=== PATIENT | female | born 1995 | race Caucasian/White ===

== ENCOUNTER 2018-11-06 11:52 | Emergency (ER) | payer BC, MEDICAID ==
[2016-11-28 07:00] VITALS: Wt 74.8 kg
[~2018-11-06 11:52] MED LIST: ACET-1718 PO; Benzocaine 60 ML TP; DOCU-416 PO; DOCU240C67 PO; IBUP800T37 PO; Lanolin TP; PREN1TAB50 PO; TUCKS TP
--- NOTE | 2018-11-06 12:02 | ER Report ---
History and Physical Time Seen By MD: 12:02 HPI/ROS CHIEF COMPLAINT: Fever for 8 days HISTORY OF PRESENT ILLNESS: 23 year old female presents to ED with fever for 8 days. Reports highest temp she took was 103.8*F axillary. Reports fever started last Monday with associated symptoms of nausea, headache, neck stiffness, diarrhea on and off, chest tightness, cough, right flank pain, body aches, chills, and night sweats. Reports to taking tylenol and ibuprofen around the clock for fever and comfort. Last dose of tylenol was at 1100 this morning. Patient was seen at urgent care last where they performed a flu swab that was negative. She was given tamiflu at that time. Reports to going to urgent care again yesterday where they collected a UA and chest x-ray. Reports chest x-ray was clear and UA showed signs of UTI. Was prescribed augmentin for the UTI. REVIEW OF SYSTEMS: Constitutional: Reports fever, fatigue, chills, night sweats, loss of appetite. Reports she has not been able to eat much of anything the past week or take in many fluids. HEENT: Reports headache, neck stiffness, nasal congestion. Denies sore throat, ear pain, vision changes. Respiratory: Reports non-productive cough, difficulty taking a deep breath, and chest tightness. Cardiovascular: No chest pain. Reports heart palpitations and a racing heart. Gastrointestinal: No vomiting, no abdominal pain. Reports diarrhea on and off. Reports nausea. Genitourinary: Denies burning and frequency of urination. Reports foul smelling and darker urine since June. Neuro: Reports dizziness and "feeling loopy" Musculoskeletal: Reports right flank pain. Allergies: Coded Allergies: No Known Drug Allergies (Unverified , 11/28/16) Home Meds Active Scripts Docusate Sodium (COLACE) 100 Mg Capsule, 200 MG PO DAILY, #60 CAPSULE 2 Refills Prov:TAYLER MORAES MD 11/29/16 Ibuprofen (IBUPROFEN) 800 Mg Tablet, 1 TAB PO Q8H PRN for pain, #40 TAB 0 Refills TAKE WITH FOOD EVERY 8 HOURS Prov:TAYLER MORAES MD 11/29/16 Acetaminophen With Codeine # 3 (ACETAMINOPHEN-COD #3 TABLET) 1 Each Tablet, 1-2 EACH PO Q4H PRN for pain, #40 TAB 0 Refills Take 1-2 tablets as needed for pain no closer than every 4 hours. Prov:TAYLER MORAES MD 11/29/16 Reported Medications Vit #76/Iron,Carb/FA (Pnv 29-1 Tablet) 1 Each Tablet, PO DAILY for 12/15/14 Past Medical/Surgical History Patient with significant past medical history of broken nose. No significant past surgical history. Reviewed Nurses Notes: Yes Hx Smoking: No Smoking Status: Never Smoker Exposure to Second Hand Smoke?: Yes Constitutional Vital Sign - Last 24 Hours 11/06/18 11/06/18 11/06/18 11/06/18 11:56 12:00 12:30 12:50 Temp 102.5 Pulse 106 106 104 99 Resp 18 18 B/P (MAP) 118/70 118/70 (86) 131/87 (102) Pulse Ox 91 92 92 O2 Delivery Room Air 11/06/18 11/06/18 11/06/18 11/06/18 12:50 12:56 13:00 13:30 Pulse 101 113 103 Resp 18 B/P (MAP) 120/78 (92) Pulse Ox 91 92 92 O2 Delivery Room Air 11/06/18 11/06/18 11/06/18 11/06/18 13:35 14:05 14:30 14:35 Pulse 100 97 95 B/P (MAP) 118/73 (88) Pulse Ox 92 95 93 Physical Exam General Appearance: The patient is alert, has no immediate need for airway protection and no current signs of toxicity. Eyes: Pupils equal and round no injection. HENT: TMs pearly cottrell with no erythema, bulging, or retraction bilaterally. Posterior pharynx with no erythema or edema. No turbinate swelling bilaterally. Respiratory: Chest is non tender, lungs are clear to auscultation. Cardiac: regular rhythm, tachycardia Gastrointestinal: Abdomen is soft and non tender, no masses, bowel sounds n ormal. Right CVA tenderness with mild palpation Musculoskeletal: Neck: Neck is supple and non tender. Negative kernig and brudzinski's sign. Skin: No rashes or lesions. Lymph: No lymphadenopathy at anterior cervical, posterior cervical, pre- auricular, submandibular, and submental. DIFFERENTIAL DIAGNOSIS: After history and physical exam differential diagnosis was considered for pyelonephritis, influenza, acute cystitis, pneumonia, mononucleosis, meningitis. Medical Decision Making Data Points Result Diagram: 11/06/18 1236 11/06/18 1236 Laboratory Hematology Test 11/06/18 12:08 11/06/18 12:36 11/06/18 13:00 Human Chorionic Gonadotropin, Qual Negative (NEGATIVE) Influenza Virus Type A (PCR) Negative (NEGATIVE) Influenza Virus Type B (PCR) Negative (NEGATIVE) Red Blood Count 4.19 M/uL (4.17-5.56) Mean Corpuscular Volume 84.3 fL (80.0-96.0) Mean Corpuscular Hemoglobin 27.9 pg (26.0-33.0) Mean Corpuscular Hemoglobin Concent 33.1 g/dL (32.0-36.0) Red Cell Distribution Width 13.7 % (11.5-14.5) Mean Platelet Volume 8.9 fL (7.2-11.1) Neutrophils (%) (Auto) 78.9 % (39.4-72.5) Lymphocytes (%) (Auto) 13.2 % (17.6-49.6) Monocytes (%) (Auto) 6.8 % (4.1-12.4) Eosinophils (%) (Auto) 0.2 % (0.4-6.7) Basophils (%) (Auto) 0.9 % (0.3-1.4) Nucleated RBC Relative Count (auto) 0.0 /100WBC Neutrophils # (Auto) 11.2 K/uL (2.0-7.4) Lymphocytes # (Auto) 1.9 K/uL (1.3-3.6) Monocytes # (Auto) 1.0 K/uL (0.3-1.0) Eosinophils # (Auto) 0.0 K/uL (0.0-0.5) Basophils # (Auto) 0.1 K/uL (0.0-0.1) Nucleated RBC Absolute Count (auto) 0.00 K/uL Erythrocyte Sedimentation Rate 40 mm/HOUR (0-20) Sodium Level 137 mmol/L (137-145) Potassium Level 4.0 mmol/L (3.5-5.0) Chloride Level 100 mmol/L (98-107) Carbon Dioxide Level 27 mmol/L (22-31) Blood Urea Nitrogen 11 mg/dl (7-18) Creatinine 0.90 mg/dl (0.52-1.04) Glomerular Filtration Rate Calc > 60.0 Random Glucose 109 mg/dl (75-110) Lactate 1.0 mmol/L (0.7-2.1) Calcium Level 8.8 mg/dl (8.4-10.2) Total Bilirubin 0.6 mg/dl (0.2-1.3) Aspartate Amino Transf (AST/SGOT) 28 U/L (0-35) Alanine Aminotransferase (ALT/SGPT) 32 U/L (0-56) Alkaline Phosphatase 131 U/L (0-126) C-Reactive Protein 21.8 mg/dl (<1.0) Total Protein 7.9 g/dl (6.3-8.2) Albumin 4.0 g/dl (3.5-5.0) Monoscreen Negative (NEGATIVE) Urine Color Yellow Urine Clarity Slightly-cloudy Urine pH 7.0 pH (4.8-9.5) Urine Specific [place]ford 1.005 Urine Protein Negative mg/dL (NEGATIVE) Urine Glucose (UA) Negative mg/dL (NEGATIVE) Urine Ketones Negative mg/dL (NEGATIVE) Urine Blood Small (NEGATIVE) Urine Nitrite Negative (NEGATIVE) Urine Bilirubin Negative (NEGATIVE) Urine Urobilinogen Negative mg/dL (0.2-1.9) Urine Leukocyte Esterase Small (NEGATIVE) Urine RBC 1 /HPF (0-2/HPF) Urine WBC 9 /HPF (0-5/HPF) Urine Squamous Epithelial Cells Many /LPF (</=FEW) Urine Transitional Epithelial Cells Few /LPF (NONE-FEW) Urine Bacteria Few /HPF (NONE-FEW) Urine Mucus None /HPF (NONE-FEW) Chemistry Test 11/06/18 12:08 11/06/18 12:36 11/06/18 13:00 Human Chorionic Gonadotropin, Qual Negative (NEGATIVE) Influenza Virus Type A (PCR) Negative (NEGATIVE) Influenza Virus Type B (PCR) Negative (NEGATIVE) White Blood Count 14.2 k/uL (4.5-11.0) Red Blood Count 4.19 M/uL (4.17-5.56) Hemoglobin 11.7 g/dL (12.0-16.0) Hematocrit 35.3 % (34.0-47.0) Mean Corpuscular Volume 84.3 fL (80.0-96.0) Mean Corpuscular Hemoglobin 27.9 pg (26.0-33.0) Mean Corpuscular Hemoglobin Concent 33.1 g/dL (32.0-36.0) Red Cell Distribution Width 13.7 % (11.5-14.5) Platelet Count 327 K/uL (150-450) Mean Platelet Volume 8.9 fL (7.2-11.1) Neutrophils (%) (Auto) 78.9 % (39.4-72.5) Lymphocytes (%) (Auto) 13.2 % (17.6-49.6) Monocytes (%) (Auto) 6.8 % (4.1-12.4) Eosinophils (%) (Auto) 0.2 % (0.4-6.7) Basophils (%) (Auto) 0.9 % (0.3-1.4) Nucleated RBC Relative Count (auto) 0.0 /100WBC Neutrophils # (Auto) 11.2 K/uL (2.0-7.4) Lymphocytes # (Auto) 1.9 K/uL (1.3-3.6) Monocytes # (Auto) 1.0 K/uL (0.3-1.0) Eosinophils # (Auto) 0.0 K/uL (0.0-0.5) Basophils # (Auto) 0.1 K/uL (0.0-0.1) Nucleated RBC Absolute Count (auto) 0.00 K/uL Erythrocyte Sedimentation Rate 40 mm/HOUR (0-20) Glomerular Filtration Rate Calc > 60.0 Lactate 1.0 mmol/L (0.7-2.1) Calcium Level 8.8 mg/dl (8.4-10.2) Total Bilirubin 0.6 mg/dl (0.2-1.3) Aspartate Amino Transf (AST/SGOT) 28 U/L (0-35) Alanine Aminotransferase (ALT/SGPT) 32 U/L (0-56) Alkaline Phosphatase 131 U/L (0-126) C-Reactive Protein 21.8 mg/dl (<1.0) Total Protein 7.9 g/dl (6.3-8.2) Albumin 4.0 g/dl (3.5-5.0) Monoscreen Negative (NEGATIVE) Urine Color Yellow Urine Clarity Slightly-cloudy Urine pH 7.0 pH (4.8-9.5) Urine Specific Sanford 1.005 Urine Protein Negative mg/dL (NEGATIVE) Urine Glucose (UA) Negative mg/dL (NEGATIVE) Urine Ketones Negative mg/dL (NEGATIVE) Urine Blood Small (NEGATIVE) Urine Nitrite Negative (NEGATIVE) Urine Bilirubin Negative (NEGATIVE) Urine Urobilinogen Negative mg/dL (0.2-1.9) Urine Leukocyte Esterase Small (NEGATIVE) Urine RBC 1 /HPF (0-2/HPF) Urine WBC 9 /HPF (0-5/HPF) Urine Squamous Epithelial Cells Many /LPF (</=FEW) Urine Transitional Epithelial Cells Few /LPF (NONE-FEW) Urine Bacteria Few /HPF (NONE-FEW) Urine Mucus None /HPF (NONE-FEW) Urinalysis Test 11/06/18 13:00 Urine Color Yellow Urine Clarity Slightly-cloudy Urine pH 7.0 pH (4.8-9.5) Urine Specific Sanford 1.005 Urine Protein Negative mg/dL (NEGATIVE) Urine Glucose (UA) Negative mg/dL (NEGATIVE) Urine Ketones Negative mg/dL (NEGATIVE) Urine Blood Small (NEGATIVE) Urine Nitrite Negative (NEGATIVE) Urine Bilirubin Negative (NEGATIVE) Urine Urobilinogen Negative mg/dL (0.2-1.9) Urine Leukocyte Esterase Small (NEGATIVE) Urine RBC 1 /HPF (0-2/HPF) Urine WBC 9 /HPF (0-5/HPF) Urine Squamous Epithelial Cells Many /LPF (</=FEW) Urine Transitional Epithelial Cells Few /LPF (NONE-FEW) Urine Bacteria Few /HPF (NONE-FEW) Urine Mucus None /HPF (NONE-FEW) EKG/Imaging Imaging Chest x-ray: FINDINGS: Heart size within normal limits. Lungs are clear. Bones are unremarkable. There is no pneumothorax or pleural effusion. IMPRESSION: 1. No acute cardiopulmonary process. Abdomen/pelvis CT: Findings: Lower lung king: Dependent atelectasis involves the lung bases. Liver: No focal parenchymal abnormality of the liver. Biliary: Gallbladder appears unremarkable as well as the intra and extra hepatic biliary system. Pancreas: Normal appearance. Spleen: The spleen is at the upper limits of normal for size. Adrenal glands: Unremarkable. Kidneys / retroperitoneum: The right kidney appears somewhat malrotated with its long axis oriented from anterior to posterior. The right kidney appears enlarged and there is perinephric inflammatory stranding identified. The enhancement pattern of the right kidney is heterogeneous when compared to the left kidney. This is most pronounced involving the more anterior and midportion of the kidney. The renal pelvis appears mildly prominent as do the calyces with mild urothelial enhancement. Culmination of findings most consistent with pyelonephritis but clinical correlation is necessary. No ureteral stone or renal stone is seen. Left kidney appears unremarkable. Bowel / peritoneum / mesenteries: No evidence of colonic wall thickening or pericolonic inflammation. Appendix not clearly seen but there are no findings to suggest acute appendicitis. No small bowel dilatation. Lymph node assessment: There is a borderline enlarged aortocaval lymph node on i mage 55 which measures 10-11 mm in short axis. Pelvic structures: IUD is in place. There is a small amount of free pelvic fluid. Adnexa are unremarkable. Vessels: No significant atherosclerotic calcifications seen throughout a nonaneurysmal abdominal aorta and branches. Musculoskeletal / Body wall: No acute or aggressive osseous abnormality. IMPRESSION: 1. Abnormal appearance of the right kidney as described above with a CT appearance most consistent with pyelonephritis. Clinical correlation is necessary for this diagnosis. No evidence for abscess. There is mild associated pelvocaliectasis without obstructing stone. 2. Borderline splenomegaly. 3. Borderline enlarged aortocaval lymph node measuring 10-11 mm in short axis. This may be reactive. 4. Trace free pelvic fluid. ED Course/Re-evaluation ED Course Patient admitted to an exam room, history and physical obtained, and differential diagnoses considered. Patients presents with fever for 8 days. Patient reports associated symptoms of nausea, diarrhea on and off, headache, neck stiffness, right flank pain, chest tightness, chills, night sweats, difficulty taking a deep breath, nasal congestion, and cough. Reports highest temp at home was 103.8. Reports taking tylenol and ibuprofen around the clock to help with fever and body aches. Reports foul smelling and darker urine since June. Patient was seen at urgent care last where they performed a flu swab that was negative. She was given tamiflu at that time. Reports to going to urgent care again yesterday where they collected a UA and chest x-ray. Reports chest x-ray was clear and UA showed signs of UTI. Was prescribed augmentin for the UTI. Upon exam patient is diaphoretic, lungs are clear to auscultation, heart rate is tachycardic, right CVA tenderness with mild palpation, negative kernig and brudzinski's sign. No abdominal or pelvic tenderness upon palpation. Collected an influenza, CBC, CMP, lactate, UA with culture and sensitivity, HCG, chest x-ray, mono, blood cultures, ESR, CRP. IV started and 1000mL NS infused. Albuterol neb given; patient reports that this has not helped her chest tightness. Ibuprofen 600mg given for pain. WBC 14.2. Nuetrophils 78.9. ESR 40. CRP 21.8. Small amount of leukocyte esterase on UA. Flu and mono were negative. Chest x-ray with no acute cardiopulmonary processes. Abdomen/pelvis CT showed signs of abnormal appearance of the right kidney most consistent with pyelonephritis. Patient given one dose of rocephin 1 gram IV. Patient requested another liter of fluids which were given. Patient to continue Augmentin. Once we have the UA sensitivity back, we will let her know if she is to continue the Augmentin or if we will switch her antibiotic. Patient agrees to plan of care. Decision to Disposition Date: Nov 06, 2018 Decision to Disposition Time: 16:20 Depart Departure Latest Vital Signs Vital Signs Date Time Temp Pulse Resp B/P (MAP) Pulse Ox O2 Delivery O2 Flow Rate FiO2 11/06/18 14:35 95 93 11/06/18 14:30 118/73 (88) 11/06/18 12:56 18 11/06/18 12:50 Room Air 11/06/18 11:56 102.5 Impression: Primary Impression: Pyelonephritis Condition: Condition Unchanged Disposition: HOME OR SELF-CARE Patient Instructions: Urinary Tract Infection in Women (ED) Additional Instructions: Please continue Augmentin until prescription is gone. We will call you with the culture and sensitivity results when they come back. We will either tell you to continue the Augmentin or we will change antibiotics. Please drink plenty of fluids. Don't return to work until you are fever free for 24 hours. Please return to the ER if your fever does not break, if you start vomiting, if you have any difficulty breathing, or your flank pain worsens. PHU SHARP Nov 06, 2018 12:02
[2018-11-06] MEDS ORDERED: NS(*) 0.9% 1000 ML BAG 1,000 ML IV ONE ×2 (12:18→15:05)
[2018-11-06] MEDS ORDERED: ALBUTEROL/IPRATROPIUM 3 ML NEB NEB ONE (12:20)
[2018-11-06 12:49] LABS: PLATELET COUNT, AUTOMATED 327 K/uL (150-450)
--- NOTE | 2018-11-06 13:34 | RADIOLOGY IMAGING REPORT ---
FACILITY: [facility] [place] PATIENT NAME: Stephany Campos : 1995 MR: [id number] V: [id number] EXAM DATE: ORDERING PHYSICIAN: PHU SHARP TECHNOLOGIST: Location: [facility] Patient: Stephany Campos : 1995 Visit/Account:[id number] Date of Sevice: 11/06/2018 2 VIEWS CHEST INDICATION: Fever, eight days COMPARISON: X-ray examination chest November 05, 2018 FINDINGS: Heart size within normal limits. Lungs are clear. Bones are unremarkable. There is no pneumothorax or pleural effusion. IMPRESSION: 1. No acute cardiopulmonary process. Report Dictated By: Srinath Borrero MD at 11/06/2018 1:30 PM Report E-Signed By: Srinath Borrero MD at 11/06/2018 1:30 PM [id number]
[2018-11-06] MEDS ORDERED: IOPAMIDOL 76% 150 ML INFUS BTL 150 ML ONE (14:00)
[2018-11-06] MEDS ORDERED: IBUPROFEN 600 MG TAB PO ONE (14:25)
[2018-11-06 14:30] VITALS: BP 118/73
[2018-11-06] MEDS ORDERED: cefTRIAXone 1 GM VIAL IVP ONE (14:30)
--- NOTE | 2018-11-06 14:39 | RADIOLOGY IMAGING REPORT ---
FACILITY: [facility] PATIENT NAME: Stephany Campos : 1995 MR: [id number] V: [id number] EXAM DATE: ORDERING PHYSICIAN: PHU SHARP TECHNOLOGIST: Location: [facility] [place] Patient: Stephany Campos : 1995 Visit/Account:[id number] Date of Sevice: 11/06/2018 Computed tomograpy abdomen and pelvis with IV contrast Indication: Right flank pain. Fever. Comparison: None available. . Technique: Transaxial computed tomography images were obtained through the abdomen and pelvis follo wing the injection of nonionic iodinated intravenous contrast. Reformatted coronal and sagittal image s were also obtained. One of the following dose optimization techniques was utilized in the performance of this exam: Autom ated exposure control; adjustment of the mA and/or kV according to the patient's size; or use of an i terative reconstruction technique. Specific details can be referenced in the facility's radiology C T exam operational policy. Contrast: 75 ml of Isovue-370 IV contrast. Findings: Lower lung king: Dependent atelectasis involves the lung bases. Liver: No focal parenchymal abnormality of the liver. Biliary: Gallbladder appears unremarkable as well as the intra and extra hepatic biliary system. Pancreas: Normal appearance. Spleen: The spleen is at the upper limits of normal for size. Adrenal glands: Unremarkable. Kidneys / retroperitoneum: The right kidney appears somewhat malrotated with its long axis oriented f rom anterior to posterior. The right kidney appears enlarged and there is perinephric inflammatory st randing identified. The enhancement pattern of the right kidney is heterogeneous when compared to the left kidney. This is most pronounced involving the more anterior and midportion of the kidney. The r enal pelvis appears mildly prominent as do the calyces with mild urothelial enhancement. Culmination of findings most consistent with pyelonephritis but clinical correlation is necessary. No ureteral st one or renal stone is seen. Left kidney appears unremarkable. Bowel / peritoneum / mesenteries: No evidence of colonic wall thickening or pericolonic inflammation. Appendix not clearly seen but there are no findings to suggest acute appendicitis. No small bowel di latation. Lymph node assessment: There is a borderline enlarged aortocaval lymph node on image 55 which measure s 10-11 mm in short axis. Pelvic structures: IUD is in place. There is a small amount of free pelvic fluid. Adnexa are unrem arkable. Vessels: No significant atherosclerotic calcifications seen throughout a nonaneurysmal abdominal aort a and branches. Musculoskeletal / Body wall: No acute or aggressive osseous abnormality. IMPRESSION: 1. Abnormal appearance of the right kidney as described above with a CT appearance most consistent wi th pyelonephritis. Clinical correlation is necessary for this diagnosis. No evidence for abscess. The re is mild associated pelvocaliectasis without obstructing stone. 2. Borderline splenomegaly. 3. Borderline enlarged aortocaval lymph node measuring 10-11 mm in short axis. This may be reactive. 4. Trace free pelvic fluid. Report Dictated By: Milton Serna at 11/06/2018 2:24 PM Report E-Signed By: Milton Serna at 11/06/2018 2:34 PM WSN:[id number]
== END 2018-11-06 16:40 | disposition home or self-care (01) ==
LOC: ER 12:20
DX: N12 Tubulo-interstitial nephritis, not specified as acute or chronic (principal); R42 Dizziness and giddiness; R07.9 Chest pain, unspecified; R06.00 Dyspnea, unspecified
CPT/HCPCS: 71046; 74177; 81001; 83605; 84703; 85025; 85651; 86140; 86308; 87040; 87088; 87502; 94640; 96361; 96374; 99284; J0696; J7030; J7620; Q9967; 82040; 82247; 82310; 82374; 82435; 82565; 82947; 84075; 84132; 84155; 84295; 84450; 84460; 84520

== ENCOUNTER 2018-11-14 15:10 | Emergency (ER) | payer BC ==
[2016-11-28 07:00] VITALS: Wt 74.8 kg
--- NOTE | 2018-11-14 15:17 | ER Report ---
History and Physical Time Seen By MD: 15:16 HPI/ROS CHIEF COMPLAINT: Abdominal pain HISTORY OF PRESENT ILLNESS: This is a 23-year-old female who presents to the emergency department for abdominal pain. Patient states that 2 weeks ago she developed some right flank pain, then roughly week after that went to urgent care and diagnosed with urinary tract infection started on Augmentin, continue to have pain to follow-up in the emergency department was diagnosed with pyelonephritis, given a shot of Rocephin continue the Augmentin, was feeling better however last night and today started having subjective fevers, with right-sided flank pain and abdominal pain. She also states that she's had some blood in her urine. Noticed a foul odor to her urine as well. No vaginal discharge or depression like spotting in the morning, she does have an IUD. Mild frontal headache, no menignismus. No rashes, no nausea or vomiting. No chest pain or shortness of breath. REVIEW OF SYSTEMS: Constitutional: As above. Eyes: No discharge. ENT: No sore throat. Cardiovascular: No chest pain, no palpitations. Respiratory: No cough, no shortness of breath. Gastrointestinal: As above. Genitourinary: As above. Musculoskeletal: No back pain. Skin: No rashes. Neurological: No headache. Allergies: Coded Allergies: No Known Drug Allergies (Unverified , 11/28/16) Home Meds Active Scripts Amoxicillin/Pot Clav 875-125 Mg Tab (AUGMENTIN 875-125 TABLET) 1 Each Tablet, 1 TAB PO Q12H for 4 Days, #8 TAB 0 Refills Prov:TICO REYES [employer]- 11/14/18 Docusate Sodium (COLACE) 100 Mg Capsule, 200 MG PO DAILY, #60 CAPSULE 2 Refills Prov:TAYLER MORAES MD 11/29/16 Ibuprofen (IBUPROFEN) 800 Mg Tablet, 1 TAB PO Q8H PRN for pain, #40 TAB 0 Refills TAKE WITH FOOD EVERY 8 HOURS Prov:TAYLER MORAES MD 11/29/16 Acetaminophen With Codeine # 3 (ACETAMINOPHEN-COD #3 TABLET) 1 Each Tablet, 1-2 EACH PO Q4H PRN for pain, #40 TAB 0 Refills Take 1-2 tablets as needed for pain no closer than every 4 hours. Prov:TAYLER MORAES MD 11/29/16 Reported Medications Vit #76/Iron,Carb/FA (Pnv 29-1 Tablet) 1 Each Tablet, PO DAILY for 12/15/14 Past Medical/Surgical History The patient has a past medical and surgical history of kidney stones, more specifically during , broken nose, pyelonephritis. Reviewed Nurses Notes: Yes Hx Smoking: No Smoking Status: Never Smoker Exposure to Second Hand Smoke?: Yes Constitutional Vital Sign - Last 24 Hours 11/14/18 11/14/18 11/14/18 11/14/18 15:19 17:10 17:42 18:57 Temp 101.0 102.3 102.0 100.9 Pulse 116 Resp 20 B/P (MAP) 110/55 Pulse Ox 92 O2 Delivery Room Air Intake and Output 11/14/18 11/14/18 11/15/18 15:00 23:00 07:00 Intake Total 2100 ml Balance 2100 ml Physical Exam General Appearance: The patient is alert, has no immediate need for airway protection and no signs of toxicity. Eyes: Pupils equal and round no pallor or injection. EOMs intact. ENT, Mouth: Mucous membranes are moist. Respiratory: There are no retractions, lungs are clear to auscultation. Cardiovascular: Regular rate and rhythm, no murmurs, clicks or rubs. Gastrointestinal: Abdomen is soft and non tender, no masses, bowel sounds normal. Neurological: Alert and oriented 4. Moving all extremities. Following all commands. No focal neuro deficits. Skin: Warm and dry, no rashes. Musculoskeletal: Neck is supple non tender. Extremities are nontender, nonswollen and have full range of motion. DIFFERENTIAL DIAGNOSIS: After history and physical exam differential diagnosis was considered for abdominal pain in a female including but not limited to ovarian cyst, pyelonephritis, pelvic inflammatory disease, ovarian torsion, urinary tract infection, and appendicitis. Medical Decision Making Data Points Result Diagram: 11/14/18 1546 11/14/18 1546 Laboratory Hematology Test 11/14/18 00:00 11/14/18 15:14 11/14/18 15:46 11/14/18 17:10 Urine HCG, Qualitative Negative (NEGATIVE) Urine Color Yellow Urine Clarity Clear Urine pH 8.0 pH (4.8-9.5) Urine Specific [place] 1.012 Urine Protein Negative mg/dL (NEGATIVE) Urine Glucose (UA) Negative mg/dL (NEGATIVE) Urine Ketones Negative mg/dL (NEGATIVE) Urine Blood Negative (NEGATIVE) Urine Nitrite Negative (NEGATIVE) Urine Bilirubin Negative (NEGATIVE) Urine Urobilinogen Negative mg/dL (0.2-1.9) Urine Leukocyte Esterase Negative (NEGATIVE) Urine RBC <1 /HPF (0-2/HPF) Urine WBC 2 /HPF (0-5/HPF) Urine Squamous Epithelial Cells Many /LPF (</=FEW) Urine Bacteria Negative /HPF (NONE-FEW) Urine Mucus None /HPF (NONE-FEW) Red Blood Count 4.39 M/uL (4.17-5.56) Mean Corpuscular Volume 84.2 fL (80.0-96.0) Mean Corpuscular Hemoglobin 27.4 pg (26.0-33.0) Mean Corpuscular Hemoglobin Concent 32.6 g/dL (32.0-36.0) Red Cell Distribution Width 13.2 % (11.5-14.5) Mean Platelet Volume 8.3 fL (7.2-11.1) Neutrophils (%) (Auto) 86.5 % (39.4-72.5) Lymphocytes (%) (Auto) 7.0 % (17.6-49.6) Monocytes (%) (Auto) 6.0 % (4.1-12.4) Eosinophils (%) (Auto) 0.2 % (0.4-6.7) Basophils (%) (Auto) 0.3 % (0.3-1.4) Nucleated RBC Relative Count (auto) 0.0 /100WBC Neutrophils # (Auto) 18.2 K/uL (2.0-7.4) Lymphocytes # (Auto) 1.5 K/uL (1.3-3.6) Monocytes # (Auto) 1.3 K/uL (0.3-1.0) Eosinophils # (Auto) 0.0 K/uL (0.0-0.5) Basophils # (Auto) 0.1 K/uL (0.0-0.1) Nucleated RBC Absolute Count (auto) 0.01 K/uL Peripheral Blood Smear Yes Y/N Sodium Level 137 mmol/L (137-145) Potassium Level 4.1 mmol/L (3.5-5.0) Chloride Level 102 mmol/L (98-107) Carbon Dioxide Level 24 mmol/L (22-31) Blood Urea Nitrogen 12 mg/dl (7-18) Creatinine 0.90 mg/dl (0.52-1.04) Glomerular Filtration Rate Calc > 60.0 Random Glucose 75 mg/dl (75-110) Lactate 1.1 mmol/L (0.7-2.1) Calcium Level 9.0 mg/dl (8.4-10.2) Total Bilirubin 0.5 mg/dl (0.2-1.3) Aspartate Amino Transf (AST/SGOT) 29 U/L (0-35) Alanine Aminotransferase (ALT/SGPT) 47 U/L (0-56) Alkaline Phosphatase 92 U/L (0-126) C-Reactive Protein 1.9 mg/dl (<1.0) Total Protein 7.4 g/dl (6.3-8.2) Albumin 4.1 g/dl (3.5-5.0) Lipase 50 U/L (23-300) Influenza Virus Type A (PCR) Negative (NEGATIVE) Influenza Virus Type B (PCR) Negative (NEGATIVE) Test 11/14/18 18:46 CSF Appearance Clear (CLEAR) CSF Color Colorless (COLORLESS) CSF WBC 1 /mm3 (0-5) CSF RBC 0 /mm3 CSF Glucose 38 mg/dl CSF Total Protein 36 mg/dl (15-50) Chemistry Test 11/14/18 00:00 11/14/18 15:14 11/14/18 15:46 11/14/18 17:10 Urine HCG, Qualitative Negative (NEGATIVE) Urine Color Yellow Urine Clarity Clear Urine pH 8.0 pH (4.8-9.5) Urine Specific [place] 1.012 Urine Protein Negative mg/dL (NEGATIVE) Urine Glucose (UA) Negative mg/dL (NEGATIVE) Urine Ketones Negative mg/dL (NEGATIVE) Urine Blood Negative (NEGATIVE) Urine Nitrite Negative (NEGATIVE) Urine Bilirubin Negative (NEGATIVE) Urine Urobilinogen Negative mg/dL (0.2-1.9) Urine Leukocyte Esterase Negative (NEGATIVE) Urine RBC <1 /HPF (0-2/HPF) Urine WBC 2 /HPF (0-5/HPF) Urine Squamous Epithelial Cells Many /LPF (</=FEW) Urine Bacteria Negative /HPF (NONE-FEW) Urine Mucus None /HPF (NONE-FEW) White Blood Count 21.0 k/uL (4.5-11.0) Red Blood Count 4.39 M/uL (4.17-5.56) Hemoglobin 12.0 g/dL (12.0-16.0) Hematocrit 36.9 % (34.0-47.0) Mean Corpuscular Volume 84.2 fL (80.0-96.0) Mean Corpuscular Hemoglobin 27.4 pg (26.0-33.0) Mean Corpuscular Hemoglobin Concent 32.6 g/dL (32.0-36.0) Red Cell Distribution Width 13.2 % (11.5-14.5) Platelet Count 405 K/uL (150-450) Mean Platelet Volume 8.3 fL (7.2-11.1) Neutrophils (%) (Auto) 86.5 % (39.4-72.5) Lymphocytes (%) (Auto) 7.0 % (17.6-49.6) Monocytes (%) (Auto) 6.0 % (4.1-12.4) Eosinophils (%) (Auto) 0.2 % (0.4-6.7) Basophils (%) (Auto) 0.3 % (0.3-1.4) Nucleated RBC Relative Count (auto) 0.0 /100WBC Neutrophils # (Auto) 18.2 K/uL (2.0-7.4) Lymphocytes # (Auto) 1.5 K/uL (1.3-3.6) Monocytes # (Auto) 1.3 K/uL (0.3-1.0) Eosinophils # (Auto) 0.0 K/uL (0.0-0.5) Basophils # (Auto) 0.1 K/uL (0.0-0.1) Nucleated RBC Absolute Count (auto) 0.01 K/uL Peripheral Blood Smear Yes Y/N Glomerular Filtration Rate Calc > 60.0 Lactate 1.1 mmol/L (0.7-2.1) Calcium Level 9.0 mg/dl (8.4-10.2) Total Bilirubin 0.5 mg/dl (0.2-1.3) Aspartate Amino Transf (AST/SGOT) 29 U/L (0-35) Alanine Aminotransferase (ALT/SGPT) 47 U/L (0-56) Alkaline Phosphatase 92 U/L (0-126) C-Reactive Protein 1.9 mg/dl (<1.0) Total Protein 7.4 g/dl (6.3-8.2) Albumin 4.1 g/dl (3.5-5.0) Lipase 50 U/L (23-300) Influenza Virus Type A (PCR) Negative (NEGATIVE) Influenza Virus Type B (PCR) Negative (NEGATIVE) Test 11/14/18 18:46 CSF Appearance Clear (CLEAR) CSF Color Colorless (COLORLESS) CSF WBC 1 /mm3 (0-5) CSF RBC 0 /mm3 CSF Glucose 38 mg/dl CSF Total Protein 36 mg/dl (15-50) Urinalysis Test 11/14/18 00:00 11/14/18 15:14 Urine HCG, Qualitative Negative (NEGATIVE) Urine Color Yellow Urine Clarity Clear Urine pH 8.0 pH (4.8-9.5) Urine Specific [place] 1.012 Urine Protein Negative mg/dL (NEGATIVE) Urine Glucose (UA) Negative mg/dL (NEGATIVE) Urine Ketones Negative mg/dL (NEGATIVE) Urine Blood Negative (NEGATIVE) Urine Nitrite Negative (NEGATIVE) Urine Bilirubin Negative (NEGATIVE) Urine Urobilinogen Negative mg/dL (0.2-1.9) Urine Leukocyte Esterase Negative (NEGATIVE) Urine RBC <1 /HPF (0-2/HPF) Urine WBC 2 /HPF (0-5/HPF) Urine Squamous Epithelial Cells Many /LPF (</=FEW) Urine Bacteria Negative /HPF (NONE-FEW) Urine Mucus None /HPF (NONE-FEW) Microbiology Microbiology Date/Time Source Procedure Growth Status 11/14/18 16:01 Blood Peripheral Draw Blood Culture - Preliminary NO GROWTH AFTER 1 DAY, REINCUBATED Resulted 11/14/18 15:46 Blood Peripheral Draw Blood Culture - Preliminary NO GROWTH AFTER 1 DAY, REINCUBATED Resulted 11/14/18 18:40 Cerebrospinal Fluid Gram Stain - Final Resulted 11/14/18 18:40 Cerebrospinal Fluid CSF Culture - Preliminary NO GROWTH AFTER 1 DAY, REINCUBATED Resulted EKG/Imaging Imaging Location[place] [facility] [place] Patient: Stephany Campos : 1995 Visit/Account:[id number] Date of Sevice: 11/14/2018 Study: CT scan of the abdomen and pelvis with intravenous contrast Indication: Abdominal pain, recent pyelonephritis Comparison study: 11/06/2018 Contrast used: 75 mL Isovue-370 Technique: Multiple axial images were obtained through the abdomen and pelvis following intravenous administration of iodinated contrast. Coronal and sagittal two-dimensional reconstructions were made from the original data set. One of the following dose optimization techniques was utilized in the performa nce of this exam: Automated exposure control; adjustment of the mA and/or kV according to the patient's size; or use of an iterative reconstruction technique. Specific details can be referenced in the facility's radiology CT exam operational policy. Findings: Lung bases: Unremarkable Liver: Unremarkable Spleen: Unremarkable Gallbladder: Unremarkable Stomach: Unremarkable Small bowel:The small bowel is unremarkable in appearance. Large bowel: The large bowel is unremarkable in appearance. The appendix was not visualized. Pancreas: Unremarkable Adrenal glands: Unremarkable Kidneys: The left kidney is unremarkable in appearance. The right kidney has an abnormal appearance. There is patchy opacification of the right kidney. This is most consistent with pyelonephritis. This is less prominent than on the previous study. There is less perinephric stranding on the current exam than on the previous study. Retroperitoneum: Unremarkable Pelvis: Unremarkable Bony structures: Unremarkable IMPRESSION: Improving appearance of right kidney. No other significant abnormality is identified. Report Dictated By: uBddy Hoffman at 11/14/2018 4:56 PM Report E-Signed By: Buddy Hoffman at 11/14/2018 5:10 PM WSN:[id number] Location[place] [facility] [place] Patient: Stephany Campos : 1995 Visit/Account:[id number] Date of Sevice: 11/14/2018 Examination: CHEST PA LAT Comparison: 11/06/2018 History: elevated WBC, fever eval for pna Findings: Cardiac and hilar contour size is normal. No consolidation, nodule, or peribronchial inflammation. No pneumothorax, edema, or effusion. Osseous structures are intact. IMPRESSION: Negative chest. Report Dictated By: Prasad Oliver MD at 11/14/2018 6:33 PM Report E-Signed By: Prasad Oliver MD at 11/14/2018 6:34 PM WSN:[id number] ED Course/Re-evaluation Clinical Indication for ER IV: Hydration, IV Access ED Course The patient was admitted to a room. A history and physical were obtained. Diffe rential diagnoses were considered. An IV was started. A CBC, CMP, blood cultures and lactate were obtained. A 1 L normal saline bolus was given 2.CBC showing RBC 21,000 up from November 06 of 14,000, historically consistent at the 14,000 white blood cell count. Left shift, chemistry unremarkable, improving CRP, negative lactate, negative UA. CT of the abdomen and pelvis shows improving pyelonephritis, no other pathology noted on the CT. I did review this with the patient, she was febrile in the emergency department his had elevated white blood cell count and on antibiotics with no clear pathology, did recommend an LP, patient was agreeable, LP was obtained, negative LP. I did speak with Dr. Rony dillard as noted below, she will follow-up with Dr. Robins tomorrow, she is given one dose of Rocephin in the ER she's missed 2 doses of her antibiotics at home, she will continue her Augmentin as prescribed, I did add an additional 4 days to complete a 14 day course. Procedure: Lumbar puncture. Indication: Headache and fever. After verbal informed consent from patient explaining the risks including infection, bleeding, and neurologic damage, a lumbar puncture was performed after the patient was prepped and draped in the usual fashion. The back was anesthetized with 1% lidocaine. Approximately 4 cc of clear fluid was obtained. Opening pressure was not obtained. There were no complications. The procedure was performed by myself. 11/14/2018 8:09:48 pm I did speak with Dr. Robins, the urologist on-call, we reviewed the case, he felt this was consistent with pyelonephritis, patient will continue her Augmentin prescription and follow-up with Dr. Robins tomorrow. Decision to Disposition Date: Nov 14, 2018 Decision to Disposition Time: 20:10 Depart Departure Latest Vital Signs Vital Signs Date Time Temp Pulse Resp B/P (MAP) Pulse Ox O2 Delivery O2 Flow Rate FiO2 11/14/18 18:57 100.9 11/14/18 15:19 116 20 110/55 92 Room Air Impression: Primary Impression: Fever Additional Impression: Pyelonephritis Condition: Improved Disposition: HOME OR SELF-CARE Referrals: TAYLER MORAES MD (PCP) FE ROBINS MD 1 Day New Scripts Amoxicillin/Pot Clav 875-125 Mg Tab (AUGMENTIN 875-125 TABLET) 1 Each Tablet 1 TAB PO Q12H for 4 Days, #8 TAB 0 Refills Prov: TICO REYES 11/14/18 Patient Instructions: Kidney Infection (ED) Additional Instructions: Please follow up with Dr. Robins first thing tomorrow morning, call his office. Please take the antibiotics as prescribed. Drink plenty of fluids. Get plenty of rest Ibuprofen and Tylenol as needed for pain. Return to the ED for any other concerns or worsening symptoms. Please establish with a primary care provider (internal medicine) within the next 1-2 weeks for follow up. Problem Qualifiers Primary Impression: Fever Fever type: unspecified Qualified Codes: R50.9 - Fever, unspecified TICO REYES-WESLEY Nov 14, 2018 15:17
[2018-11-14 15:19] VITALS: BP 110/55
[2018-11-14] MEDS ORDERED: NS(*) 0.9% 1000 ML BAG 1,000 ML IV ONE ×2 (15:40→17:20)
[2018-11-14] MEDS ORDERED: IOPAMIDOL 76% 150 ML INFUS BTL 150 ML ONE (15:59)
[2018-11-14 16:12] LABS: PLATELET COUNT, AUTOMATED 405 K/uL (150-450)
[2018-11-14] MEDS ORDERED: ACETAMINOPHEN(*)1000 MG/100 ML 100 ML IVPB ONE (16:15)
--- NOTE | 2018-11-14 17:13 | RADIOLOGY IMAGING REPORT ---
FACILITY: [facility] PATIENT NAME: Stephany Campos : 1995 MR: [id number] V: [id number] EXAM DATE: ORDERING PHYSICIAN: TICO REYES TECHNOLOGIST: Location: [facility] Patient: Stephany Campos : 1995 Visit/Account:[id number] Date of Sevice: 11/14/2018 Study: CT scan of the abdomen and pelvis with intravenous contrast Indication: Abdominal pain, recent pyelonephritis Comparison study: 11/06/2018 Contrast used: 75 mL Isovue-370 Technique: Multiple axial images were obtained through the abdomen and pelvis following intravenous a dministration of iodinated contrast. Coronal and sagittal two-dimensional reconstructions were made f rom the original data set. One of the following dose optimization techniques was utilized in the performance of this exam: Autom ated exposure control; adjustment of the mA and/or kV according to the patient's size; or use of an i terative reconstruction technique. Specific details can be referenced in the facility's radiology C T exam operational policy. Findings: Lung bases: Unremarkable Liver: Unremarkable Spleen: Unremarkable Gallbladder: Unremarkable Stomach: Unremarkable Small bowel:The small bowel is unremarkable in appearance. Large bowel: The large bowel is unremarkable in appearance. The appendix was not visualized. Pancreas: Unremarkable Adrenal glands: Unremarkable Kidneys: The left kidney is unremarkable in appearance. The right kidney has an abnormal appearance. There is patchy opacification of the right kidney. Thi s is most consistent with pyelonephritis. This is less prominent than on the previous study. There is less perinephric stranding on the current exam than on the previous study. Retroperitoneum: Unremarkable Pelvis: Unremarkable Bony structures: Unremarkable IMPRESSION: Improving appearance of right kidney. No other significant abnormality is identified. Report Dictated By: Buddy Hoffman at 11/14/2018 4:56 PM Report E-Signed By: Buddy Hoffman at 11/14/2018 5:10 PM WSN:[id number]
[2018-11-14] MEDS ORDERED: KETOROLAC 30 MG/ML VIAL IVP ONE (17:40)
--- NOTE | 2018-11-14 18:38 | RADIOLOGY IMAGING REPORT ---
FACILITY: [facility] - [place] PATIENT NAME: Stephany Campos : 1995 MR: [id number] V: [id number] EXAM DATE: ORDERING PHYSICIAN: TICO REYES TECHNOLOGIST: Location: [facility] Patient: Stephany Campos : 1995 Visit/Account:[id number] Date of Sevice: 11/14/2018 Examination: CHEST PA LAT Comparison: 11/06/2018 History: elevated WBC, fever eval for pna Findings: Cardiac and hilar contour size is normal. No consolidation, nodule, or peribronchial inflam mation. No pneumothorax, edema, or effusion. Osseous structures are intact. IMPRESSION: Negative chest. Report Dictated By: Prasad Oliver MD at 11/14/2018 6:33 PM Report E-Signed By: Prasad Oliver MD at 11/14/2018 6:34 PM WSN:[id number]
[2018-11-14] MEDS ORDERED: cefTRIAXone 1 GM VIAL IVP ONE (20:00)
[2018-11-14] MEDS ORDERED: AMOX-559 PO (20:13)
[2018-11-15] MEDS ORDERED: AMOX-559 PO (14:48)
== END 2018-11-14 20:40 | disposition home or self-care (01) ==
LOC: ER 15:17
DX: N12 Tubulo-interstitial nephritis, not specified as acute or chronic (principal); R50.9 Fever, unspecified
CPT/HCPCS: 62270; 71046; 74177; 81001; 81025; 82945; 83605; 83690; 84157; 85025; 86140; 87040; 87070; 87205; 87502; 89050; 96361; 96374; 96375; 99284; J0131; J0696; J1885; J7030; Q9967; 82040; 82247; 82310; 82374; 82435; 82565; 82947; 84075; 84132; 84155; 84295; 84450; 84460; 84520

== ENCOUNTER → 2018-11-16 | Outpatient (REF) | payer BC ==
[2016-11-28 07:00] VITALS: BMI 32.5
[~2018-11-16] MED LIST changes: +AMOX-559 PO
== END ==
LOC: ZZSENDIN 11:42
PROVIDERS: ATTEND Urology
DX: R19.7 Diarrhea, unspecified (principal)
CPT/HCPCS: 87045

== ENCOUNTER → 2018-11-29 | Outpatient (CLI) | payer BC ==
[2016-11-28 07:00] VITALS: BMI 32.5
== END ==
LOC: LAB 09:30
PROVIDERS: ATTEND Urology
DX: N12 Tubulo-interstitial nephritis, not specified as acute or chronic (principal); R50.9 Fever, unspecified
CPT/HCPCS: 81001; 87088

== ENCOUNTER → 2018-12-03 | Outpatient (CLI) | payer BC ==
[2016-11-28 07:00] VITALS: BMI 32.5
--- NOTE | 2018-12-03 15:59 | RADIOLOGY IMAGING REPORT ---
FACILITY: [facility] PATIENT NAME: Stephany Campos : 1995 MR: [id number] V: [id number] EXAM DATE: [id number] ORDERING PHYSICIAN: TAVO FUENTES TECHNOLOGIST: Location: [facility] - [place] Patient: Stephany Campos : 1995 Visit/Account:[id number] Date of Sevice: 12/03/2018 CT ABDOMEN WITH IV CONTRAST CLINICAL INFORMATION: Right-sided flank pain, possible pyelonephritis and fever TECHNIQUE: Axial CT images were obtained through the abdomen during injection of nonionic iodinated intravenous contrast. Reformatted coronal and sagittal images were also obtained.Dose Lowering Techn ique One of the following dose optimization techniques was utilized in the performance of this exam: Autom ated exposure control; adjustment of the mA and/or kV according to the patient's size; or use of an i terative reconstruction technique. Specific details can be referenced in the facility's radiology C T exam operational policy. CONTRAST: 75 mL of Isovue 370 IV contrast. COMPARISON: November 14, 2018. FINDINGS: Lower lung king: Limited views lower lung field are unremarkable. Liver: Normal appearance Biliary: Gallbladder is very contracted which may be related to a recent meal Pancreas: Normal appearance. Spleen: Normal appearance. Adrenal glands: Unremarkable. Kidneys / retroperitoneum: There is a striated nephrogram on the right that appears similar to the pr ior study and is concerning for pyelonephritis is the history suggests. There is no evidence of hydr onephrosis. There is very mild perinephric stranding on the right similar to the prior examination Bowel / peritoneum / mesenteries: Stomach is distended with particulate material which may be related to a recent meal Lymph node assessment: There are multiple shotty retroperitoneal lymph nodes that appears similar to the prior study Vessels: No significant atherosclerotic calcification seen throughout a nonaneurysmal abdominal aorta and branches. Musculoskeletal / Body wall: There is a small umbilical hernia containing fat IMPRESSION: 1. There is a striated nephrogram of the right kidney that appears similar to the prior study and is consistent with the clinical history of pyelonephritis. Shotty retroperitoneal lymph nodes appear stable Report Dictated By: Mirta Malloy MD at 12/03/2018 3:49 PM Report E-Signed By: Mirta Malloy MD at 12/03/2018 3:55 PM WSN:[id number]
== END ==
LOC: LAB 14:40
PROVIDERS: ATTEND Urology
DX: N12 Tubulo-interstitial nephritis, not specified as acute or chronic (principal); R50.9 Fever, unspecified
CPT/HCPCS: 74160; 81001